=== PATIENT | male | born 1990 | race Caucasian/White ===

== ENCOUNTER 2024-04-27 00:01 | Observation (INO) | payer OTHER ==
[~2024-04-27] VITALS: Ht 231.1 cm; Wt 225.0 kg
[2024-04-27] MEDS ORDERED: Morphine 4 MG/ML VIAL IV ONE (00:30)
[2024-04-27] MEDS ORDERED: Ondansetron 4 MG/2 ML VIAL IV ONE (00:30)
[2024-04-27 00:46] LABS: BASO # 0.1 K/mm3 (0.0-0.2); BASO % 0.6 % (0.0-2.0); EOS # 0.2 K/mm3 (0.0-0.7); EOS % 1.9 % (0.0-4.0); GRAN % 67.2 % (42.2-75.2); HEMATOCRIT 42.4 % (42.0-52.0); HEMOGLOBIN 15.2 g/dl (13.5-18.0); LYMPH # 2.8 K/mm3 (1.2-3.4); LYMPH % 23.4 % (20.0-51.0); MEAN CELL VOLUME 89 fl (80.0-100.0); MEAN CORPUSCULAR HEMOGLOBIN 32 pg (27-31); MEAN CORPUSCULAR HGB CONC 36 g/dl (33.0-37.0); MEAN PLATELET VOLUME 12.1 fl (7.4-10.4); MONO # 0.8 K/mm3 (0.1-0.6); MONO % 6.6 % (1.7-9.3); PLATELET COUNT 176 K/mm3 (130-400); RED BLOOD COUNT 4.76 M/mm3 (4.20-5.60); REDCELL DISTRIBUTION WIDTH-CV 12.1 % (11.5-14.5)
[2024-04-27 01:12] LABS: ALBUMIN 4.1 g/dL (3.5-5.0); BILIRUBIN,TOTAL 0.7 mg/dL (0.2-1.2); CALCIUM 9.5 mg/dL (8.4-10.2); CREATININE, serum 1.18 mg/dL (0.72-1.25); POTASSIUM 3.8 mEq/L (3.5-4.5); TOTAL PROTEIN 7.5 g/dl (6.2-8.1)
[2024-04-27] MEDS ORDERED: Iohexol 300 - 100 ML VIAL IV ONE (01:22)
[2024-04-27] MEDS ORDERED: NS 50 ML IV SCH (01:23)
[2024-04-27] MEDS ORDERED: Ondansetron 4 MG/2 ML VIAL IV PRN ×2 (02:15→08:15)
[2024-04-27] MEDS ORDERED: Morphine 4 MG/ML VIAL IV PRN (02:15)
[2024-04-27] MEDS ORDERED: Rocuronium 50 MG/5 ML Multi-Dose VIAL ONE ×2 (07:30→08:07)
[2024-04-27] MEDS ORDERED: fentaNYL 50 MCG/ML 2 ML VIAL ONE (07:30)
[2024-04-27] MEDS ORDERED: Glycopyrrolate 0.2 MG/ML 1 ML VIAL ONE (07:31)
[2024-04-27] MEDS ORDERED: Ondansetron 4 MG/2 ML VIAL ONE (07:31)
[2024-04-27] MEDS ORDERED: dexAMETHasone 10 MG/ML VIAL ONE ×2 (07:31→08:18)
[2024-04-27] MEDS ORDERED: Ketorolac 30 MG/ML VIAL ONE (07:31)
[2024-04-27] MEDS ORDERED: Lidocaine PF 2% (20 MG/ML) 5 ML VIAL ONE (07:31)
[2024-04-27] MEDS ORDERED: NS 10 ML IV ONE (07:55)
[2024-04-27] MEDS ORDERED: Morphine 2 MG/1 ML VIAL [PACU/SDC ONLY] IV PRN (08:15)
[2024-04-27] MEDS ORDERED: HYDROmorphone 1 MG/1 ML SYRINGE [PACU/SDC ONLY] IV PRN (08:15)
[2024-04-27] MEDS ORDERED: fentaNYL 50 MCG/ML 1 ML SYRINGE/VIAL [PACU/SDC ONLY] IV PRN (08:15)
[2024-04-27] MEDS ORDERED: hydrALAZINE 20 MG/ML 1 ML VIAL IV PRN (08:15)
[2024-04-27] MEDS ORDERED: NORCO 325 MG-51 TAB PO (09:01)
--- NOTE | 2024-04-27 09:10 | NUR ---
PATIENT CAME FROM SURGERY. PATIENT ON ROOM AIR, VSS WNL, DENIES PAIN AT THIS TIME. PATIENT ON POST-OP VITALS. PATIENT ABLE TO DRINK AND SWALLOW WITHOUT ANY ISSUE. AT BEDSIDE. CALL LIGHT WITHIN REACH. BED AT LOWEST POSITION.
[2024-04-27 09:15] VITALS: BP 129/62; PULSE 75; TEMP 97.8
[2024-04-27] MEDS ORDERED: Acetaminophen 325 MG TAB PO PRN (09:15)
[2024-04-27 09:30] VITALS: BP 122/60; PULSE 65; TEMP 97.8
[2024-04-27 09:45] VITALS: BP 124/96; PULSE 72; TEMP 97.8
[2024-04-27 10:00] VITALS: BP 126/74; PULSE 65; TEMP 97.8
[2024-04-27 10:30] VITALS: BP 132/67; PULSE 67; TEMP 98.7
[2024-04-27 11:00] VITALS: BP 126/67; PULSE 58; TEMP 98.7
--- NOTE | 2024-04-27 11:10 | NUR ---
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 Patient lives in [place] with his . PCP is at [facility], Pharmacy is [facility]. No issues affording medications. [employer] is [employer]. No DPOA-HC not currently interested in completing one. No DME at home. Patient reports to be independent with [facility] and has a form of transportation to and from appointments. Patient would like to return home at time of discharge. DIscharge plan: Home
--- NOTE | 2024-04-27 11:50 | NUR ---
PATIENT DISCHARGE ORDERS WERE GIVEN. PATIENT VERBALIZED UNDERSTANDING AND DENIES ANY OTHER QUESTIONS. PATIENT AT BEDSIDE. IV TO LEFT AC REMOVED. PATIENT INSTRUCTED TO CALL WHEN READY FOR PCT TO TRANSPORT PATIENT OUT OF HOSPITAL. CALL LIGHT WITHIN REACH.
== END 2024-04-27 12:00 | disposition home or self-care (01) ==
LOC: COL.ER 00:01 → EDBD 00:02 → COL.ER 00:02 → SURG 01:51 → MEDICAL 09:17
PROVIDERS: Emergency Medicine; ADMIT Surgery
DX: K35.80 Unspecified acute appendicitis (principal); K38.1 Appendicular concretions
CPT/HCPCS: G0378; J0690; J1100; J1885; J2270; J2405; J2543; J2704; J3010; Q9967